=== PATIENT | male | born 1980 ===

== ENCOUNTER 2025-04-12 01:54 | Emergency (ER) | payer BC, SELFPAY ==
[2025-04-12 01:56] VITALS: BP 186/118
[2025-04-12 02:19] LABS: Urine Character Clear (Clear)
[2025-04-12 02:21] LABS: Hematocrit 41.6 % (39.0-52.0); Hemoglobin 14.4 g/dL (13.0-18.0); Mean Corp Hgb Conc. 34.6 g/dL (33.0-37.0); Mean Corpuscular Volume 82.5 fL (80.0-94.0); Nucleated Red Blood Cells % 0 % (-); Platelet Count 196 10^3/uL (130-400); Red Cell Dist. Width 12.5 % (11.5-14.5)
[2025-04-12 02:26] LABS: Urine Red Blood Cell 26-30 /HPF (0-2); Urine Squamous Cell 0-2 /LPF (Few); Urine White Cell 0-2 /HPF (0-5)
[2025-04-12 02:36] VITALS: BMI 35.5
[2025-04-12 02:39] LABS: ALT (SGPT) 52 U/L (0-50); AST (SGOT) 33 U/L (17-59); Albumin 4.8 g/dl (3.5-5.0); Alkaline Phosphatase 61 U/L (38-126); Blood Urea Nitrogen 26 mg/dl (9-20); Calcium 9.8 mg/dl (8.4-10.2); Carbon Dioxide 28 mmol/L (22-30); Chloride 102 mmol/L (98-107); Estimated Creatinine Clearance > 125 ml/min; Glucose 170 mg/dl (70-99); Potassium 4.1 mmol/L (3.5-5.1); Sodium 138 mmol/L (135-145); Total Protein 7.4 g/dl (6.3-8.2); eGFR > 60.00
[2025-04-12] MEDS: ZOFRAN 4 MG IV (02:39)
[2025-04-12] MEDS: TORADOL 30 MG IV (02:43)
[2025-04-12 04:17] VITALS: BP 152/79
--- NOTE | 2025-04-12 04:32 | ED.GENMED ---
History of Present Illness
General
Chief Complaint: Flank Pain
Source: patient
Exam Limitations: none
Time Seen by Provider: 04/12/25 03:43
Nursing documentation reviewed up to this point in time: agreed with
History of Present Illness
History of Present Illness:
Patient presents to ED secondary to sudden onset of right flank pain associated nausea vomiting, in the early evening. Patient states that he has had number of similar symptoms in the past, secondary to kidney stones. Denies fever or chills.
Denies trauma. Denies difficulty with urination. Denies recent illness. Denies recent change in medications or diet.
Review of Systems
Review of Systems
Allergies reviewed?: Yes
All Other Systems: ROS reviewed and negative except as documented in HPI and ROS
Constitutional: Reports no symptoms
ABD/GI: Reports nausea and vomiting
: Reports flank pain
Musculoskeletal: Reports no symptoms
Skin: Reports no symptoms
Neurological: Reports no symptoms
Phy Exam
Physical Exam
Physical Exam:
Physical Exam
General: mild painful distress, not acutely ill. afebrile
Head: nc/at. eomi
Neck: supple. no meningeal signs.
Abdomen: normal bowel sounds. not tender.
Neuro: alert and oriented. no focal neurological deficits
Skin: no rash
Psychiatric: well kept. interactive and cooperative
Extremities: no edema. no calf tenderness.
Course
Orders/Labs/Results
Orders:
Orders
04/12/25 02:08
Complete Blood Count/With Diff Urgent
Comprehensive Metabolic Panel Urgent
Urinalysis Urgent
Date Specimen was Collected: 04/12/25
Time Specimen was Collected: 01:59
Urine Microscopic Urgent
Date Specimen was Collected: 04/12/25
Time Specimen was Collected: 01:59
04/12/25 02:38
Ketorolac [Toradol] 30 mg .ROUTE .STK-MED ONE
Ondansetron Injectable [Zofran] 4 mg .ROUTE .STK-MED ONE
Ondansetron Injectable [Zofran] 4 mg IV NOW STA
04/12/25 02:43
Ketorolac [Toradol] 30 mg IV NOW STA
04/12/25 03:46
CT Abd/pel Without Iv Or Oral Urgent
Comment:
Reason For Exam: right flank pain w hx kidney stone
Abnormal Lab Results
04/12/25
02:08
BUN 26 H mg/dl
(9-20)
Glucose 170 H mg/dl
(70-99)
ALT 52 H U/L
(0-50)
Urine Occult Blood 4+ A
(Negative)
Urine RBC 26-30 A /HPF
(0-2)
Urine Albumin 2+ A
(Neg - Trace)
04/12/25 02:08
04/12/25 02:08
Vital Signs
Initial and Last Documented VS:
Initial Vital Signs
Temp Pulse Resp BP Pulse Ox
97.5 F 60 20 186/118 100
04/12/25 01:56 04/12/25 01:56 04/12/25 01:56 04/12/25 01:56 04/12/25 01:56
Last Documented Vital Signs
Temp Pulse Resp BP Pulse Ox
97.5 F 67 18 152/79 99
04/12/25 01:56 04/12/25 04:17 04/12/25 04:17 04/12/25 04:17 04/12/25 04:33
MDM/Problems Addressed
MDM/Problems Addressed:
Patient reports improvement in symptoms after treatment. CT abdomen pelvis report reviewed and discussed with patient, suggestive of recently passed kidney stone. Otherwise, patient remains afebrile, hemodynamically stable, and nontoxic-appearing,
during observation. Patient feels comfortable going home at this time, to the care of his family, with referral to urology for an outpatient consultation. Advised to return to ED with worsening symptoms, i.e. fever/for CP/vomiting/inability
urinate.
*Pulse Oximetry
SaO2: 99
Oxygen Mode of Delivery: Room air
Patient hypoxic: no
*Critical Care Note
Total Time (30-74mins, 75-104mins- exclusive of procedures): Not Applicable
ED Attending Note
-
Portions of this chart may have been created with voice recognition software.� Occasional wrong word or��sound alike� substitutions may have occurred due to the inherent limitations of voice recognition software.
Discharge Plan
Departure
Patient Disposition: Home (Routine Discharge)
Date of Disposition: 04/12/25
Time of Disposition: 04:33
Patient with high blood pressure during this ER visit?: Yes
Condition: Good
Discharge Problem:
Kidney stone
Instructions: Kidney Stones (DC)
Prescriptions:
No Action
duloxetine 40 mg Capsule, Delayed Rel Sprinkle
40 mg PO DAILY
Referrals:
Nitin Muir MD [Active, Urology]
NONE,* [Family Provider, Internal Medicine]
Activity Restrictions/Additional Instructions:
As discussed, please follow-up with referred urologist with any further concerns. Please consider return to ED with worsening symptoms, i.e. fever/worsening pain/vomiting/inability urinate.
Interventions
Interventions:
*Risk Screen - Suicide Last Done: 04/12/25 01:56
*General Assessment Last Done: 04/12/25 02:43
*Neglect/Abuse Screening Last Done: 04/12/25 01:56
*ED- Fall Risk Assessment Last Done: 04/12/25 02:43
*ED COVID-19 Vaccine History Last Done: 04/12/25 02:43
*Nursing Disposition Last Done: 04/12/25 04:40
ZN-Rfyhtj-Mvqflsnbiv Assessment Last Done: 04/12/25 02:47
ED-Male Genitourinary Assessment Last Done: 04/12/25 02:47
Discharge Date and Time
Discharge Date/Time: 04/12/25 04:41
Print Language: GEORGIAN
== END 2025-04-12 04:41 | disposition home or self-care (01) ==
LOC: EMR 01:54
PROVIDERS: EMERGENCY PHYSICIAN Emergency Medicine
DX: N13.2 Hydronephrosis with renal and ureteral calculous obstruction (principal); R11.2 Nausea with vomiting, unspecified
CPT/HCPCS: 96374; 96375; 99284; 74176; 80053; 81003; 81015; 85025